=== PATIENT | male | born 1955 | race Caucasian/White ===

== ENCOUNTER 2018-10-24 13:01 | Inpatient (IN) | payer OTHER ==
[~2018-10-24] VITALS: Ht 172.7 cm; Wt 71.0 kg
[2018-10-24 13:05] VITALS: Ht 172.7 cm; Wt 71.0 kg
--- NOTE | 2018-10-24 13:22 | NUR ---
EKG DONE IN TRIAGE AND SHOWN TO ER MD.
--- NOTE | 2018-10-24 14:10 | NUR ---
PRESENTS TO ED WITH C/O L SIDED CHEST PAIN THAT STARTED AT 5PM LAST NIGHT WHILE LYING ON THE COUCH; PT STS HE HAS NEVER HAD CHEST PAIN LIKE THIS BEFORE; STS PAIN IS ACHING AND INTERMITTENT AND RADIATES TO L ARM AND BACK. PT STS THERE IS NOTHING THAT MAKES PAIN WORSE OR BETTER; RATES PAIN AT 9/10 CURRENTLY. RESPS E/U; LUNGS ARE CTA; REPORTS MILD NAUSEA WITH NO VOMITING; CONNECTED TO [employer]. PERFORMING MSE
--- NOTE | 2018-10-24 14:27 | NUR ---
XRAY AT BEDSIDE
[2018-10-24 14:34] LABS: BASOPHIL % 0.7 % (0-2); PLATELET COUNT 251 x10^3mcL (130-400); RED CELL DISTRIBUTION WIDTH 12.3 % (11.5-14.5)
[2018-10-24 14:44] LABS: CALCIUM 8.5 mg/dL (8.5-10.1); CARBON DIOXIDE 27.7 mmol/L (21-32); CHLORIDE SERUM 102 mmol/L (98-107); GFR1 > 60 mL/min; GLUCOSE SERUM 106 mg/dL (74-106); POTASSIUM SERUM 4.3 mmol/L (3.5-5.1); SODIUM SERUM 138 mmol/L (136-145)
[2018-10-24 14:50] LABS: ALBUMIN 3.8 g/dL (3.4-5.0); ALKALINE PHOSPHATASE 63 U/L (46-116); ALT/SGPT 26 U/L (16-63); AST/SGOT 93 U/L (15-37); BILIRUBIN TOTAL 0.72 mg/dL (0.20-1.00); TOTAL PROTEIN, SERUM 7.6 g/dL (6.4-8.2)
--- NOTE | 2018-10-24 15:38 | NUR ---
REVIEWED LABS, NOTED ELEVATED TGROPONIN AND ND-DIMER. V/S MUPDATE, PAIN SIGNIFICANTLY DECREASED. 12 LEAD ECG IN PROGRESS AT THIS TIME. IS AWARE OF INTENT TO ADMIT. HAS CALLED HIS SON TO GET HIS VEHICLE. ADMISSION: HAS 1 B/P MED, NAME UNKNOWN. NO SIGNIFICANT BELONGINGS, NO VALUABLE TO BE PLACED INN SAFE. WILL KEEP GLASSES, NO OTHER PROSTHESIS TO NOTE.
[2018-10-24] MEDS ORDERED: B/P MED (15:44)
--- NOTE | 2018-10-24 15:51 | NUR ---
CRITICAL VALUE NOTATION EDITED TO TROPONIN, AND NOT "LACTIC ACID" WHICH WAS ORIGINALLY STATED BY CINDY IN LAB. MD CINTRON AWARE.
--- NOTE | 2018-10-24 16:00 | NUR ---
PT REQUESTED URINAL; ONE PROVIDED.
--- NOTE | 2018-10-24 17:37 | NUR ---
REMAINS ON ED ESSENTIALLY PAIN FREE "ALMOST GONE". V/S NOTED- IS HYPERTENSIVE; HAS NOT TAKEN HTN RX, CAN NOT REMEMBER NAME OF HTN RX. HAS CALLED HIS SON TO GET INFORMATION. REPOSITIONED FOR COMFORT, HAS CALL LIGHT AND WATCHING TV BED FOR ICU- ASSIGNED BUT CAN NOT TRANSFER YET.
--- NOTE | 2018-10-24 19:05 | NUR ---
REPORT OFF TO GILDARDO CHAIDEZ TO ASSUME CARE OF PT
--- NOTE | 2018-10-24 19:06 | NUR ---
FIRST CONTACT WITH PT. PT RESTING IN BED WATCHING TV. PT COMPLAINING OF A HEADACHE RATED 8/10. PT HYPERTENSIVE AT 147/113. AWATING BED IN ICU AT 730.
[2018-10-24 19:17] LABS: MAGNESIUM 2.1 mg/dL (1.8-2.4); PHOSPHOROUS 2.4 mg/dL (2.5-4.9)
[2018-10-24 19:22] LABS: CHOLESTEROL/HDL RATIO 4.9
[2018-10-24 19:24] LABS: FREE T4 0.87 ng/dL (0.76-1.46); FREE THYROXINE INDEX 2.8 ug/dL (1.4-4.5); T4(THYROXINE) 8.3 ug/dL (4.7-13.3)
--- NOTE | 2018-10-24 19:34 | NUR ---
PT AMBUALTED TO WHEELCHAIR, ASSISTED TO RESTROOM VIA WHEELCHAIR.
--- NOTE | 2018-10-24 19:47 | NUR ---
REPORT GIVEN TO GILDARDO LU IN ICU.
--- NOTE | 2018-10-24 19:56 | NUR ---
PT TRANSFERRED FROM ER VIA [facility] ACCOMPANIED BY RN AND EMT. PT AMBULATED TO ICU BED WITHOUT ANY DIFFICULTY. PT IS A/O X4, SPEECH CLEAR AND APPROPRIATE. PERRLA NOTED. VITAL SIGNS UPON ARRIVAL B/P 143/106 MAP 124, HR 95, RR 17, O2 SAT 98%, PAIN LEVEL 1/10 TO CHEST AREA. COSMETICS PRESSER IN PLACE, SHOWING NSR. SKIN WARM DRY TO TOUCH. SKIN INTACT. ABD SOFT, ROUNDED, NONTENDER TO TOUCH. BOWEL SOUNDS ACTIVE. DENIES ANY N/V/D. IV TO LAC G 20 INTACT AND PATENT, IVF NS INFUSING @ 100ML/HR. PT VOIDS FREELY. DENIES ANY URINARY SYMPTOMS. ACTIVE ROM X4 NOTED. ABLE TO REPOSITION SELF. PT TEACHING PROVIDED REGARDING HEPARIN GTT AND NITRO GTT TO BE STARTED AND PLAN OF CARE. ALL QUESTIONS AND CONCERNS ADDRESSED. PT INSTRUCTED TO CALL FOR ANY ASSISTANCE. CALL LIGHT WITHIN REACH. WILL CONTINUE WITH PLAN OF CARE.
[2018-10-24 20:05] VITALS: BP 143/106
--- NOTE | 2018-10-24 20:51 | NUR ---
PT TEACHING PROVIDED REGARDING NITRO GTT, VERBALIZED UNDERSTANDING. NITRO GTT STARTED @ 0.5 MCG/KG/HR, B/P 165/101.
--- NOTE | 2018-10-24 21:28 | NUR ---
HEPARIN GTT AND PROTOCOL EXPLAINED TO PT, VERBALIZED UNDERSTANDING. HEPARIN GTT INITIATED AT THIS TIME, BOLUSED WITH HEPARIN 4,200 UNITS, INITIATED DOSE STARTED AT 900 UNITS/HR. PTT ORDERED FOR 0330.
--- NOTE | 2018-10-24 22:22 | NUR ---
B/P 125/82 MAP 100. NITRO GTT TURNED OFF AT THIS TIME
--- NOTE | 2018-10-24 23:15 | NUR ---
PT ASSISTED TO BSC, BM X1.
[2018-10-24 23:20] VITALS: BP 150/96
--- NOTE | 2018-10-25 00:27 | NUR ---
RENETTA RT AT BEDSIDE, EKG DONE
--- NOTE | 2018-10-25 03:50 | NUR ---
LAB AT BEDSIDE FOR PTT DRAW
[2018-10-25 04:02] VITALS: BP 115/81
[2018-10-25 04:15] LABS: BASOPHIL % 0.4 % (0-2); PLATELET COUNT 238 x10^3mcL (130-400); RED CELL DISTRIBUTION WIDTH 12.2 % (11.5-14.5)
[2018-10-25 04:30] LABS: CALCIUM 8.2 mg/dL (8.5-10.1); CARBON DIOXIDE 26.1 mmol/L (21-32); CHLORIDE SERUM 100 mmol/L (98-107); CREATININE SERUM 0.9 mg/dL (0.7-1.3); GFR1 > 60 mL/min; GLUCOSE SERUM 109 mg/dL (74-106); MAGNESIUM 1.9 mg/dL (1.8-2.4); PHOSPHOROUS 2.3 mg/dL (2.5-4.9); POTASSIUM SERUM 4.1 mmol/L (3.5-5.1); SODIUM SERUM 137 mmol/L (136-145)
--- NOTE | 2018-10-25 04:38 | NUR ---
PTT 41.3, HEPARIN 2,800 UNITS BOLUSED, INFUSION INCREASED TO 1,000 UNITS/HR.
--- NOTE | 2018-10-25 05:37 | NUR ---
PT ASSISTED TO BSC, BM X1
--- NOTE | 2018-10-25 07:09 | NUR ---
REPORT GIVEN TO YUNG TO ASSUME CARE.
[2018-10-25 08:24] VITALS: BP 126/82
--- NOTE | 2018-10-25 09:33 | NUR ---
Relayed PTT results to Dr. Walsh with no new orders. MD states pharmacy will make the necessary adjustment. Pt awaiting bed for higher level of care. Will continue to monitor.
[2018-10-25 11:57] VITALS: BP 122/88
[2018-10-25] MEDS ORDERED: PLA75 PO (14:26)
[2018-10-25] MEDS ORDERED: LIPITOR40 MG PO (14:27)
[2018-10-25] MEDS ORDERED: GOOD SENSE ASPI81 M3 PO (14:27)
[2018-10-25 14:39] LABS: T3 TOTAL 1.13 ng/mL
[2018-10-25] MEDS ORDERED: METOPROLOL TART25 M1 PO (15:30)
[2018-10-25 15:50] VITALS: BP 122/88
[2018-10-25 16:09] VITALS: BP 144/70
--- NOTE | 2018-10-25 16:16 | NUR ---
Pt has order to transfer to [facility]. Pt has a bed in [facility] room 236. Pt transported via gurney with [facility] ambulance personnel. Pt alert and oriented x4. No distress noted. Pt tolerated transferred well. Call to give report x4 to [facility] but unsucessful, left message for nurse to call me back. Pt will continue to monitor at [facility].
== END 2018-10-25 16:37 | disposition short-term general hospital (02) | DRG 190 ==
LOC: ED 13:01 → IC 16:48
PROVIDERS: Emergency Medicine; ADMIT Internal Medicine
DX: I21.4 Non-ST elevation (NSTEMI) myocardial infarction (principal); E83.39 Other disorders of phosphorus metabolism; I16.1 Hypertensive emergency; I10 Essential (primary) hypertension; R74.0 Nonspecific elevation of levels of transaminase and lactic acid dehydrogenase [LDH]; E78.5 Hyperlipidemia, unspecified; F17.210 Nicotine dependence, cigarettes, uncomplicated; Z68.25 Body mass index [BMI] 25.0-25.9, adult
CPT/HCPCS: 83880; 84439; 85378; J1644; J2270; J3490; J7030